=== PATIENT | male | born 1985 | race Caucasian/White ===

== ENCOUNTER 2019-07-17 15:04 | Day surgery (SDC) | payer OTHER, MEDICAID, SELFPAY ==
[2019-07-17] VITALS (7 sets, daily range): BP systolic 100–126; BP diastolic 54–79; PULSE 63–111; RESP 16–26; TEMP 36.8–37.1; O2SAT 93–98; BMI 27.3
--- NOTE | 2019-07-17 | PATH_ITS ---
[facility] Accession Number: [id number] . 01 Material submitted: . hernia - RIGHT INGUINAL HERNIA SAC . 02 Diagnosis: Right Inguinal Hernia Sac, Excision: Fibroadipose tissue, consistent with hernia sac. No evidence of neoplasm. [facility] 07/22/2019 1154 Local . 02 Electronically signed: . Victor Hugo Huerta MD, PhD, Pathologist NPI- [id number] . 01 Gross description: . Received in formalin, labeled right inguinal hernia sac, is a piece of pham-pink, rubbery, semi-translucent tissue (4.5 x 2.0 x 0.6 cm). Chef Instructor serial sections submitted in cassette A1. ([id number]) /MRV 07/20/2019 2210 Local . 02 Pathologist provided ICD-10: K40.20 . 02 CPT . 330524 Performed at: 01 [facility] [address] [facility], [place], [place] [id number] MD Angel Bautista MD Phone: [phone] Performed at: 02 [facility] [address] [place], [place] [id number] MD Ester Marie MD Phone: [phone]
[2019-07-17] MEDS: LACTATED RINGERS 1,000 ML 42 ML IV ×2 (16:47→18:51)
[2019-07-17] MEDS: METOCLOPRAMIDE 10 MG/2 ML INJ IV (17:32)
[2019-07-17] MEDS: FAMOTIDINE 20 MG/50 ML PIGGYBACK 200 MG IV (17:35)
[2019-07-17] MEDS: CEFAZOLIN 2 GM/100 ML FROZ.PIGGY IV (17:45)
[2019-07-17] MEDS: BUPIVACAINE 0.25% W/ EPI 30 ML VIAL INJ (18:17)
[2019-07-17] MEDS: BUPIVACAINE LIPOSOME 266 MG/20 ML VIAL INJ (18:54)
--- NOTE | 2019-07-17 19:37 | P.OP_ITS ---
Operative Date/Time/Diagnoses Date of procedure: 07/17/19 Time of procedure: 19:38 Pre-op diagnosis: Incarcerated right inguinal hernia Post-op diagnosis: same (Incarcerated direct right inguinal hernia) Procedure & Clinicians Procedure: Open repair of incarcerated right inguinal hernia with mesh Same procedure as scheduled: Yes Indications: Incarcerated right inguinal hernia Surgeon: Ofelia Cooney Click Yes if Unassisted: Yes Anesthesia Type: General Operative Notes Findings: Incarcerated direct right inguinal hernia Specimen(s): other (Hernia sac) Prosthetic devices, grafts, tissues, transplants, or devices: Bard macro porous flat mesh Estimated Blood Loss (mL): 5 Blood products transfused: none Procedure in detail: Patient was brought to the room placed supine on the operating table in sequential compression device were placed on both legs and turned on. General anesthesia was induced patient was intubated. Appropriate perioperative antibiotics were given. The abdomen and groin were prepped and draped in sterile fashion. Surgical time-out was conducted. Local anesthetic was injected in a skin crease 2 fingerbreadths superior to the inguinal ligament. An oblique incision was made at this site, 10 cm in length using a 10 blade. Dissection was carried down to the skin and dermis, and subcutaneous tissue, until I reached the external oblique aponeurosis. More local anesthetic was injected under the aponeurosis. I then opened the aponeurosis with a 15 blade in the direction of the fibers. I extended the incision with Metzenbaum scissors to open the entire aponeurosis to the external ring. I then dissected out the spermatic cord and associated hernia sac. The sac was densely attached to the spermatic cord, and required prolonged tedious dissection in order to get it dissected free. Once it was entirely freed, I could see that it was a large direct hernia, without an indirect hernia component. I opened the inguinal floor, and dissected away the excess sac. I then closed the floor with running PDS suture, and secured a Bard medium size flat macro porous mesh over the intact floor using 2 PDS suture with a good 2 cm overlap of the mesh over the pubic tubercle medially. As I moved laterally securing the mesh to the inguinal ligament shelving edge inferiorly and to the conjoint tendon superiorly, I divided the lateral portion of the mesh right down the center, once I reached the internal ring, and allowed the tails of the mesh to fold around the spermatic cord, creating a new internal ring. I made sure that this was not too tight and that allowed the tip of an instrument to slide into the opening along with the spermatic cord, ensuring that it was not strangulated. I gave a generous amount of local anesthetic using 0.25% Marcaine as well as Exparel in the pubic tubercle and conjoint tendon as well as the superior leaf of the aponeurosis of the external oblique. Once the mesh was entirely secured and the testicle and spermatic cord were put back into their normal anatomic position I then closed the external oblique aponeurosis with a running 3 0 Vicryl suture. I then closed the Anna's fascia it with another 3 0 Vicryl, and then closed the skin with running 4 0 Monocryl suture, and sealed the skin edges with Dermabond. The patient tolerated the procedure well. Needle sponge and instrument counts were correct at the end of the procedure. Patient was sanchez sferred to the PACU in stable condition, with plans to transfer to the floor for overnight observation. Complications: none Post-operative Condition: stable Disposition: PACU
[2019-07-17] MEDS: hydrOXYzine 50 MG/ML INJ 25 MG IM (20:05)
[2019-07-17] MEDS: OXYCODONE IR 5 MG TABLET PO (20:05)
--- NOTE | 2019-07-17 20:29 | SUR.PHASEI ---
report to nu, then pt transferred via bed to room 204 in stable condition.
--- NOTE | 2019-07-17 23:39 | PC.ADMIT ---
[facility] Admission Note: The patient,Chet Mcelroy,33 y/o, was given written information regarding hospital policies, unit procedures and contact persons. Pt arrived to room 204 at approx 2030 from PACU. A/O x4. Denies pain. Incision well approximated. No drainage. Oriented to room and call system. Call light within reach. Patient's smoking status: Current every day smoker. Vital Signs - 8 hr 07/17/19 16:31 07/17/19 19:46 07/17/19 19:52 Temperature 98.2 F 98.6 F Pulse Rate 111 H 84 83 Respiratory Rate 16 26 H 21 Blood Pressure 126/79 104/70 114/67 Pulse Oximetry 98 93 94 07/17/19 19:56 07/17/19 20:12 07/17/19 20:27 Temperature 98.8 F Pulse Rate 71 63 67 Respiratory Rate 18 22 18 Blood Pressure 100/61 107/67 121/54 L Pulse Oximetry 93 95 97 07/17/19 21:07 Temperature Pulse Rate 64 Respiratory Rate 18 Blood Pressure 116/69 Pulse Oximetry 96
[2019-07-18 00:04] VITALS: BP 120/69; PULSE 56; RESP 16; TEMP 36.2; O2SAT 99
[2019-07-18] MEDS: OXYCODONE IR 5 MG TABLET PO ×2 (00:08→06:11)
[2019-07-18] MEDS: ACETAMINOPHEN 325 MG TABLET 650 MG PO ×2 (00:08→06:09)
--- NOTE | 2019-07-18 00:47 | PC.NURSE ---
Patient seen and assessed at 0010. Is alert and oriented. Breath sounds diminished throughout but has shallow respirations and reluctant to deep breathe related to discomfort from incision. Discussed importance of CDB to prevent post op complications and need to have pain controlled for effective oxygenation. RA sat is 96% and has continuous pulse oximetry in place. HRR but bradycardic in 50's. Denies nausea. BT hypoactive but states he has passed flatus. Abdomen is tender and mildly distended. Dermabonded incision is well approximated and without redness or drainage. Rates pain severity as 5/10 so agreeable to taking both scheduled Tylenol + Oxycodone and ice applied to incisional area. Wearing bilateral calf SCD's. Fall risk score is low. rooming in.
[2019-07-18 06:15] VITALS: BP 107/62; PULSE 63; RESP 17; TEMP 36.3; O2SAT 97
[2019-07-18 09:00] VITALS: BP 118/65; PULSE 58; RESP 18; TEMP 36.4; O2SAT 96
--- NOTE | 2019-07-18 10:44 | PC.NURSE ---
Day Shift- Pt tolerated regular diet for breakfast, no nausea, no abd bloating. Rates 3-4/10 aching to right groin incision area. Pain management plan discussed. Due to pt's [address], this RN suggested pt have his Pres[facility] Oxycodone [facility] at [place] [facility] as pt is not due for pain meds until 1215 per eMAR. Pt's Evelyne had prescription filled at [facility] and retrieved. Water and snack item given to pt prior to discharge. Discharge summary packet reviewed with pt and his who is present to drive pt home. Pt stated he will make a follow up appointment at 's office. States has all belongings and no voiced concerns. Pt left unit at 1020 in no distress via wheelchair with [employer] escort with all belongings.
--- NOTE | 2019-07-18 12:34 | CM.DANOTE ---
Discharge Planning/Care Management DCP: assessment: case received, discussed in Team Rounds, dc order noted. Pt is a 33 year old male who admitted yesterday to care of [facility] Dr. Cooney. PCP: listed as Angel Swenson He was taken to surgery yesterday for a hernia repair. Admission status: SDC: per ANA Stark Payer: [facility] Medicaid By time Rounds had ended pt had been d/c'd to his home. No d/c needs identified by the care team members. CM Discharge Assessment Start: 07/18/19 12:34 Freq: Status: Active Protocol: Document 07/18/19 12:34 ITV (Rec: 07/18/19 12:34 ITV [id number]) Discharge Planning Assessment Advance Directives? No History Provided By Medical Record Prior Living Arrangements House Household Members spouse,children Review Status In Process
== END 2019-07-18 10:20 | disposition home or self-care (01) ==
LOC: OR 15:39 → AC 20:26
PROVIDERS: PCP Family Medicine; Visit Provider Surgery
PROC: (CPT 49507; principal; 2019-07-17 17:30)
DX: K40.30 Unilateral inguinal hernia, with obstruction, without gangrene, not specified as recurrent (principal); F17.210 Nicotine dependence, cigarettes, uncomplicated; J45.998 Other asthma
CPT/HCPCS: 49507; 99220; C1781; C9290; J0690; J1100; J2250; J2405; J2704; J2765; J3010; J3410